=== PATIENT | female | born 1980 | race Caucasian/White ===

== ENCOUNTER 2020-01-31 19:42 | Emergency (ER) | payer BC ==
[~2020-01-31] VITALS: Ht 160 cm; Wt 85.1 kg
[2020-01-31 19:45] VITALS: BP 133/77
== END 2020-01-31 21:36 ==
LOC: ED 20:15
DX: S93.491A Sprain of other ligament of right ankle, initial encounter (principal); F17.200 Nicotine dependence, unspecified, uncomplicated; X50.1XXA Overexertion from prolonged static or awkward postures, initial encounter; Y93.89 Activity, other specified; Y92.098 Other place in other non-institutional residence as the place of occurrence of the external cause; Y99.8 Other external cause status
CPT/HCPCS: 99283